=== PATIENT | female | born 1980 | race Caucasian/White ===

== ENCOUNTER 2022-01-24 11:02 | Outpatient (CLI) | payer BC | END 2022-01-24 11:03 | disposition home or self-care (01) | LOC: CSHMAMMO 11:02 | PROVIDERS: ATTEND Family Medicine | DX: Z12.31 Encounter for screening mammogram for malignant neoplasm of breast (principal) | CPT/HCPCS: 77063; 77067 ==

== ENCOUNTER 2023-01-31 13:32 | Outpatient (CLI) | payer BC | END 2023-01-31 13:33 | disposition home or self-care (01) | LOC: CSHMAMMO 13:32 | PROVIDERS: ATTEND Family Medicine | DX: Z12.31 Encounter for screening mammogram for malignant neoplasm of breast (principal) | CPT/HCPCS: 77063; 77067 ==

== ENCOUNTER 2024-02-01 08:01 | Outpatient (CLI) | payer BC | END 2024-02-01 08:02 | disposition home or self-care (01) | LOC: CSHMAMMO 08:01 | PROVIDERS: ATTEND Family Medicine | DX: Z12.31 Encounter for screening mammogram for malignant neoplasm of breast (principal) | CPT/HCPCS: 77063; 77067 ==

== ENCOUNTER 2024-04-11 05:58 | Day surgery (SDC) | payer BC ==
[2024-04-09 08:10] VITALS: BMI 32.1
[2024-04-11] MEDS ORDERED: CEFAZOLIN 2 GM VIAL ONE (06:54)
[2024-04-11] MEDS ORDERED: Bupivacaine HCl 0.5%/Epinephrine 1:200,000/PF 30 ml Vial ONE (06:54)
[2024-04-11] MEDS ORDERED: Midazolam HCl 2 mg/2 ml Vial ONE (06:56)
[2024-04-11] MEDS ORDERED: Famotidine/PF 20 mg/2ml Vial ONE (06:56)
[2024-04-11] MEDS ORDERED: fentaNYL 50 mcg/mL 1 mL Vial ONE ×2 (07:08→08:28)
[2024-04-11] MEDS ORDERED: Rocuronium Bromide 10 MG/ML (10ML VIAL) ONE (07:09)
[2024-04-11] MEDS ORDERED: Ondansetron PF 4 MG/2 ML Vial ONE (07:09)
[2024-04-11] MEDS ORDERED: Dexamethasone 4 mg/ml Vial ONE (07:09)
[2024-04-11] MEDS ORDERED: PROPOFOL 20 ML ONE (07:09)
[2024-04-11] MEDS ORDERED: Lidocaine 4% PF 5 ML AMP ONE (07:10)
[2024-04-11] MEDS ORDERED: Ketorolac Tromethamine 30 MG (1 mL) VIAL ONE (07:51)
[2024-04-11] MEDS ORDERED: SUGAMMADEX SODIUM 200 MG/2 ML VIAL ONE (08:11)
[2024-04-11] MEDS ORDERED: HYDROcodone/Acetaminophen 5/325 mg Tablet ONE (09:20)
== END 2024-04-11 09:50 | disposition home or self-care (01) ==
LOC: CSHSDC 05:58
PROVIDERS: ATTEND Surgery
PROC: 0WUF4JZ Supplement Abdominal Wall with Synthetic Substitute, Percutaneous Endoscopic Approach (ICD-10-PCS; principal; 2024-04-11)
DX: K43.2 Incisional hernia without obstruction or gangrene (principal); E03.9 Hypothyroidism, unspecified; K21.9 Gastro-esophageal reflux disease without esophagitis; E11.9 Type 2 diabetes mellitus without complications; Z79.84 Long term (current) use of oral hypoglycemic drugs; Z79.890 Hormone replacement therapy; Z79.899 Other long term (current) drug therapy; Z98.890 Other specified postprocedural states
CPT/HCPCS: C1781; J1100; J1885; J2250; J2405; J2704; J3010; J3490

== ENCOUNTER 2025-02-10 11:24 | Outpatient (CLI) | payer BC | END 2025-02-10 11:25 | disposition home or self-care (01) | LOC: CSHMAMMO 11:24 | PROVIDERS: ATTEND Family Medicine | DX: Z12.31 Encounter for screening mammogram for malignant neoplasm of breast (principal) | CPT/HCPCS: 77063; 77067 ==